=== PATIENT | female | born 1960 | race Caucasian/White ===

== ENCOUNTER → 2016-04-21 | Outpatient (CLI) | payer BC, OTHER ==
--- NOTE | 2016-04-21 11:25 | MM ---
Reason for exam: history of breast cancer, mastectomy. Last mammogram was performed 1 year ago. History: Patient has history of breast cancer at age 47. Family history of breast cancer in paternal cousin and premenopausal breast cancer in paternal cousin. Excisional biopsy of the right breast, September 17, 2008. Benign left mammotome panel of the left breast, September 01, 2008. Mastectomy of the right breast, September 2008. Saline implant in the right breast, 2008. Malignant excisional biopsy of the right breast, February 25, 2008. Chemotherapy. Taking tamoxifen for 5 years 4 months beginning at age 47. Took unspecified hormones for 10 months. Physical Findings: Nurse did not find any significant physical abnormalities on exam. MG 3D Diag Mammo W/Cad LT CC and MLO view(s) were taken of the left breast. Prior study comparison: April 20, 2015, left breast MG 3d diag mammo w/cad LT. March 11, 2014, left breast MG diagnostic mammo LT w CAD. March 07, 2013, left diagnostic mammogram w/CAD. There are scattered fibroglandular densities. Previous mammotome biopsy in the left breast. There is chronic nodularity in the left breast. No significant new findings when compared with previous films. These results were verbally communicated with the patient and result sheet given to the patient on 04/21/16. ASSESSMENT: Negative, BI-RAD 1 RECOMMENDATION: Follow-up diagnostic mammogram of the left breast in 1 year.
== END | disposition home or self-care (01) ==
LOC: RADMAMWWP 10:45
PROVIDERS: ATTEND Internal Medicine Hematology & Oncology
DX: Z08 Encounter for follow-up examination after completed treatment for malignant neoplasm (principal); Z85.3 Personal history of malignant neoplasm of breast
CPT/HCPCS: G0206; G0279

== ENCOUNTER → 2017-06-26 | Outpatient (CLI) | payer BC, OTHER ==
--- NOTE | 2017-06-26 10:23 | MM ---
Reason for exam: additional evaluation requested from prior study. Last mammogram was performed 1 year and 2 months ago. History: Patient is postmenopausal and has history of breast cancer at age 47. Family history of breast cancer in paternal cousin and premenopausal breast cancer in paternal cousin. Excisional biopsy of the right breast, September 17, 2008. Benign left mammotome panel of the left breast, September 01, 2008. Mastectomy of the right breast, September 2008. Saline implant in the right breast, 2008. Malignant excisional biopsy of the right breast, February 25, 2008. Chemotherapy. Taking tamoxifen for 5 years 4 months beginning at age 47. Took unspecified hormones for 10 months. Physical Findings: Nurse did not find any significant physical abnormalities on exam. MG 3D Diag Mammo W/Cad LT CC and MLO view(s) were taken of the left breast. Prior study comparison: April 21, 2016, left breast MG 3d diag mammo w/cad LT. April 20, 2015, left breast MG 3d diag mammo w/cad LT. There are scattered fibroglandular densities. Previous mammotome biopsy in the left breast. There is chronic nodularity in the left breast at clip. There is no discrete abnormality. These results were verbally communicated with the patient and result sheet given to the patient on 06/26/17. ASSESSMENT: Benign, BI-RAD 2 RECOMMENDATION: Follow-up diagnostic mammogram of the left breast in 1 year.
== END | disposition home or self-care (01) ==
LOC: RADMAMWWP 09:20
PROVIDERS: ATTEND Obstetrics & Gynecology
DX: Z08 Encounter for follow-up examination after completed treatment for malignant neoplasm (principal); Z85.3 Personal history of malignant neoplasm of breast
CPT/HCPCS: 77065; G0279

== ENCOUNTER 2017-08-04 09:37 | Day surgery (SDC) | payer BC, OTHER ==
[2017-08-02 10:32] VITALS: BMI 31.1
[~2017-08-04 09:37] MED LIST: LACTATED RINGERS 1,000 ML IV SCH; LIDOCAINE 1% 20 ML VIAL (10MG/ML) FOR IV START INTRADERMA PRN; MIDAZOLAM 2 MG/2 ML VIAL IV PRN
[2017-08-04 10:48] VITALS: RESP 16; TEMP 99
[2017-08-04] MEDS ORDERED: PROPOFOL 10 MG/ML 20 ML VIAL IV ONE (11:08)
--- NOTE | 2017-08-04 11:40 | P.PCN ---
Date of Procedure: 08/04/17 Procedure(s) Performed: BRIEF HISTORY: Patient is a 57-year-old pleasant white female, scheduled for an elective colonoscopy as a part of screening for colon neoplasia. She does have family history of colon cancer diagnosed in her father in his 70s. PROCEDURE PERFORMED: Colonoscopy with snare polyp. PREOPERATIVE DIAGNOSIS: Screening for colon cancer/family history of colon cancer. IV sedation per Anesthesia. PROCEDURE: After informed consent was obtained, the patient, was brought into the endoscopy unit. IV sedation was administered by Anesthesia under continuous monitoring. Digital rectal examination was normal. Initially the Olympus CF- 160 flexible video colonoscope was then inserted in the rectum, gradually advanced into the cecum without any difficulty. Careful examination was performed as the scope was gradually being withdrawn. Ileocecal valve and the appendiceal orifice were visualized and appeared normal. Prep was excellent. Mucosa of the cecum, ascending colon, transverse colon, descending colon, sigmoid colon, and rectum appeared normal. Retroflexion was performed in the rectum and no lesions were seen. The patient tolerated the procedure well. IMPRESSION: 5 mm sessile transverse colon polyp status post snare polypectomy Rest of the colon appeared normal. RECOMMENDATIONS: Findings of this examination were discussed with the patient as well as her family. She was advised to have a repeat severance colonoscopy in 5 is removed because of colon polyps and family history of colon cancer].
[2017-08-04 12:01] VITALS: BP 139/92; PULSE 61
== END 2017-08-04 12:18 | disposition home or self-care (01) ==
LOC: ORWHC2ENDO 09:37
PROVIDERS: ATTEND Internal Medicine Gastroenterology
DX: Z12.11 Encounter for screening for malignant neoplasm of colon (principal); K63.5 Polyp of colon; Z80.0 Family history of malignant neoplasm of digestive organs; I10 Essential (primary) hypertension; E07.9 Disorder of thyroid, unspecified; F17.200 Nicotine dependence, unspecified, uncomplicated; Z79.82 Long term (current) use of aspirin; Z79.890 Hormone replacement therapy; Z79.899 Other long term (current) drug therapy; Z88.0 Allergy status to penicillin
CPT/HCPCS: 88305; 45385; J2704

== ENCOUNTER → 2018-07-13 | Outpatient (CLI) | payer OTHER ==
--- NOTE | 2018-07-13 13:41 | MM ---
Reason for exam: additional evaluation requested from prior study. Last mammogram was performed 1 year and 1 month ago. History: Patient is postmenopausal and has history of breast cancer at age 47. Family history of breast cancer in paternal cousin and premenopausal breast cancer in paternal cousin. Excisional biopsy of the right breast, September 17, 2008. Benign left mammotome panel of the left breast, September 01, 2008. Mastectomy of the right breast, September 2008. Saline implant in the right breast, 2008. Malignant excisional biopsy of the right breast, February 25, 2008. Chemotherapy. Taking tamoxifen for 5 years 4 months beginning at age 47. Took unspecified hormones for 10 months. Physical Findings: Nurse did not find any significant physical abnormalities on exam. MG 3D Diag Mammo W/Cad LT CC, MLO, and LM view(s) were taken of the left breast. Prior study comparison: June 26, 2017, left breast MG 3d diag mammo w/cad LT. April 21, 2016, left breast MG 3d diag mammo w/cad LT. The breast tissue is heterogeneously dense. This may lower the sensitivity of mammography. There is chronic nodularity in the left breast. Stable post operative changes left breast. No significant new findings when compared with previous films. These results were verbally communicated with the patient and result sheet given to the patient on 07/13/18. ASSESSMENT: Benign, BI-RAD 2 RECOMMENDATION: Follow-up diagnostic mammogram of the left breast in 1 year.
== END | disposition home or self-care (01) ==
LOC: RADMAMWWP 12:46
PROVIDERS: ATTEND Internal Medicine Hematology & Oncology
DX: Z08 Encounter for follow-up examination after completed treatment for malignant neoplasm (principal); Z85.3 Personal history of malignant neoplasm of breast
CPT/HCPCS: 77061; 77065

== ENCOUNTER → 2019-10-31 | Outpatient (CLI) | payer OTHER | END | disposition home or self-care (01) | LOC: LABWHC1 09:00 | PROVIDERS: ATTEND Nurse Practitioner Family | DX: E87.5 Hyperkalemia (principal) | CPT/HCPCS: 36415; 84132 ==

== ENCOUNTER → 2020-02-04 | Outpatient (CLI) | payer OTHER ==
--- NOTE | 2020-02-05 11:11 | MM ---
Reason for exam: screening (asymptomatic). Last mammogram was performed 1 year and 7 months ago. History: Patient is postmenopausal and has history of breast cancer at age 47. Family history of breast cancer in paternal cousin and premenopausal breast cancer in paternal cousin. Excisional biopsy of the right breast, September 17, 2008. Benign left mammotome panel of the left breast, September 01, 2008. Mastectomy of the right breast, September 2008. Saline implant in the right breast, 2008. Malignant excisional biopsy of the right breast, February 25, 2008. Chemotherapy. Taking tamoxifen for 5 years 4 months beginning at age 47. Took unspecified hormones for 10 months. Physical Findings: A clinical breast exam by your physician is recommended on an annual basis and results should be correlated with mammographic findings. MG 3D Scr Judy Unilateral W/Cad CC and MLO view(s) were taken of the left breast. Prior study comparison: July 13, 2018, left breast MG 3d diag mammo w/cad LT. June 26, 2017, left breast MG 3d diag mammo w/cad LT. There are scattered fibroglandular densities. Benign appearing calcifications in the left breast. Previous mammotome biopsy in the left breast. There is chronic nodularity in the left breast, stable. No significant changes when compared with prior studies. ASSESSMENT: Benign, BI-RAD 2 RECOMMENDATION: Routine screening mammogram of the left breast in 1 year.
== END | disposition home or self-care (01) ==
LOC: RADMAMWWP 09:03
PROVIDERS: ATTEND Family Medicine
DX: Z12.31 Encounter for screening mammogram for malignant neoplasm of breast (principal)
CPT/HCPCS: 77067

== ENCOUNTER → 2021-05-24 | Outpatient (CLI) | payer BC ==
--- NOTE | 2021-05-26 11:19 | MM ---
Reason for exam: screening (asymptomatic). Last mammogram was performed 1 year and 4 months ago. History: Patient is postmenopausal and has history of breast cancer at age 47. Family history of breast cancer in paternal cousin and premenopausal breast cancer in paternal cousin. Excisional biopsy of the right breast, September 17, 2008. Benign left mammotome panel of the left breast, September 01, 2008. Mastectomy of the right breast, September 2008. Saline implant in the right breast, 2008. Malignant excisional biopsy of the right breast, February 25, 2008. Chemotherapy. Taking tamoxifen for 5 years 4 months beginning at age 47. Took unspecified hormones for 10 months. Physical Findings: A clinical breast exam by your physician is recommended on an annual basis and results should be correlated with mammographic findings. MG 3D Scr Judy Unilateral W/Cad Bilateral CC and MLO view(s) were taken. Prior study comparison: February 04, 2020, bilateral MG 3d scr judy unilateral w/cad. July 13, 2018, left breast MG 3d diag mammo w/cad LT. There are scattered fibroglandular densities. Previous mammotome biopsy in the left breast. There is chronic nodularity in the left breast. No significant changes when compared with prior studies. ASSESSMENT: Benign, BI-RAD 2 RECOMMENDATION: Routine screening mammogram of the left breast in 1 year.
== END | disposition home or self-care (01) ==
LOC: RADMAMWWP 07:37
PROVIDERS: ATTEND Obstetrics & Gynecology
DX: Z12.31 Encounter for screening mammogram for malignant neoplasm of breast (principal); Z80.3 Family history of malignant neoplasm of breast; Z85.3 Personal history of malignant neoplasm of breast; Z78.0 Asymptomatic menopausal state
CPT/HCPCS: 77067

== ENCOUNTER → 2022-07-19 | Outpatient (CLI) | payer BC ==
--- NOTE | 2022-07-19 14:29 | BD ---
EXAMINATION TYPE: Axial Bone Density DATE OF EXAM: 07/19/2022 CLINICAL HISTORY: 62 years old Female. ICD-10 CODE: Z78.0 ASYMPTOMATIC MENOPAUSAL STATE Height: 61.5 Weight: 161 FRAX RISK QUESTIONS: Current Tobacco Use: yes RISK FACTORS HISTORY OF: Postmenopausal woman: yes, hx of chemo 2009 at 47 yrs old, menses stopped Hyperparathyroidism: no Adrenal Insufficiency: no MEDICATIONS: Thyroid Medications: yes, since age 47, synthroid product. Additional Medications: bp meds, hx of chemo, cancer at age 47, tomoxifin for 10 yrs, Additional History: hx of rt breast cancer at age 47, mastectomy with reconstruction right breast, th yr, hypertension EXAM MEASUREMENTS: Bone mineral densitometry was performed using the [employer]. Bone mineral density as measured about the Lumbar spine is: ----- L1-L4(G/cm2): 1.057 T Score Values are as follows: ----- L1: -1.3 ----- L2: -1.1 ----- L3: -1.3 ----- L4: -0.7 ----- L1-L4: -1.0 Z Score Values are as follows: ----- L1: -0.3 ----- L2: -0.1 ----- L3: -0.3 ----- L4: 0.3 ----- L1-L4: 0.0 Bone mineral density has: Decreased -2.1% since 04.20.2015 Bone mineral density about the R hip (g/cm2): 0.932 Bone mineral density about the L hip (g/cm2): 0.919 T Score values are as follows: -----R Neck: -1.1 -----L Neck: -1.2 -----R Total: -0.6 -----L Total: -0.7 Z Score values are as follows: -----R Neck: 0.0 -----L Neck: -0.1 -----R Total: 0.1 -----L Total: 0.3 Bone mineral density has: Decreased -1.3% since: 04.20.2015 FRAX%s: The graph provided illustrates a 7.3% chance for a major osteoporotic fx and a 0.8% chance fo r the hips probability for fx in 10 years time. IMPRESSION: Osteopenia (T Score between -2.5 and -1) is now present. There is slightly increased risk of fracture and the patient may be considered for treatment. Re-Screen 2-5 years. NOTE: T-SCORE=SD OF THE YOUNG ADULT MEAN.
--- NOTE | 2022-07-20 09:59 | MM ---
Reason for Exam: Screening (asymptomatic). Last mammogram was performed 1 year(s) and 2 month(s) ago. Patient History: Menarche at age 12. First Full-Term at age 24. Postmenopausal. Breast cancer, right, age 47. Tamoxifen, starting at age 47 for 5 years, 4 months. Unspecified Hormone for 10 months. 09/2008, Mastectomy on the Right side. 02/25/2008, Malignant Excisional Biopsy on the right side. 09/01/2008, Benign Core Biopsy on the left side. Chemotherapy. 2008, Implant on the right side. Paternal cousin had breast cancer. Paternal cousin had breast cancer. Prior Study Comparison: 07/13/2018 Left Diagnostic Mammogram, [facility]. 02/04/2020 Bilateral Screening Mammogram, [facility]. 05/24/2021 Bilateral Screening Mammogram, [facility]. Tissue Density: Left: There are scattered fibroglandular densities. Findings: There is no suspicious group of microcalcifications or new suspicious mass. Previous mammotome biopsy in the left breast. Chronic nodularity within the left breast. Overall Assessment: Benign, BI-RAD 2 Management: Screening Mammogram of the left breast in 1 year. A clinical breast exam by your physician is recommended on an annual basis and results should be correlated with mammographic findings. Electronically signed and approved by: Alan Mendoza D.O.
== END | disposition home or self-care (01) ==
LOC: RADMAMWWP 10:55
PROVIDERS: ATTEND Obstetrics & Gynecology
DX: Z12.31 Encounter for screening mammogram for malignant neoplasm of breast (principal); Z78.0 Asymptomatic menopausal state; M85.89 Other specified disorders of bone density and structure, multiple sites
CPT/HCPCS: 77067; 77080

== ENCOUNTER → 2023-09-07 | Outpatient (CLI) | payer BC ==
--- NOTE | 2023-09-07 21:10 | MM ---
Reason for Exam: Screening (asymptomatic). Last mammogram was performed 1 year(s) and 2 month(s) ago. Patient History: Menarche at age 12. First Full-Term at age 24. Postmenopausal. Breast cancer, right, age 47. Tamoxifen, starting at age 47 for 5 years, 4 months. Unspecified Hormone for 10 months. 09/2008, Mastectomy on the Right side. 09/17/2008, Excisional Biopsy on the Right side. 02/25/2008, Malignant Excisional Biopsy on the right side. 09/01/2008, Benign Core Biopsy on the left side. Chemotherapy. 2008, Implant on the right side. Paternal cousin had breast cancer. Paternal cousin had breast cancer. Prior Study Comparison: 02/04/2020 Bilateral Screening Mammogram, [facility]. 05/24/2021 Bilateral Screening Mammogram, [facility]. 07/19/2022 Left MG 3D scr jos unilateral w/cad., [facility]. Tissue Density: Left: There are scattered areas of fibroglandular density. Findings: Chronic nodularity central left breast with microclip related to prior biopsy. There is no suspicious group of microcalcifications or new suspicious mass in either breast. Overall Assessment: Benign, BI-RAD 2 Management: Screening Mammogram of the left breast in 1 year. Patient should continue monthly self-breast exams. A clinical breast exam by your physician is recommended on an annual basis. This exam should not preclude additional follow-up of suspicious palpable abnormalities. Electronically signed and approved by: Antonio Churchill M.D. Radiologist
== END | disposition home or self-care (01) ==
LOC: RADMAMWWP 08:34
PROVIDERS: ATTEND Family Medicine
DX: Z12.31 Encounter for screening mammogram for malignant neoplasm of breast (principal); Z78.0 Asymptomatic menopausal state; Z80.3 Family history of malignant neoplasm of breast
CPT/HCPCS: 77067

== ENCOUNTER → 2024-09-19 | Outpatient (CLI) | payer BC ==
--- NOTE | 2024-09-19 14:22 | MM ---
Reason for Exam: Screening (asymptomatic). Last screening mammogram was performed 12 month(s) ago. Patient History: Menarche at age 12. First Full-Term at age 24. Postmenopausal. Breast cancer, right, age 47. Tamoxifen, starting at age 47 for 5 years, 4 months. Unspecified Hormone for 10 months. 09/2008, Mastectomy on the Right side. 09/17/2008, Excisional Biopsy on the Right side. 02/25/2008, Malignant Excisional Biopsy on the right side. 09/01/2008, Benign Core Biopsy on the left side. Chemotherapy. 2008, Implant on the right side. Paternal cousin had breast cancer. Paternal cousin had breast cancer. Prior Study Comparison: 05/24/2021 Bilateral Screening Mammogram, [facility]. 07/19/2022 Left MG 3D scr jos unilateral w/cad., [facility]. 09/07/2023 Left MG 3D scr jos unilateral w/cad., [facility]. Tissue Density: Left: There are scattered areas of fibroglandular density. Findings: Analyzed By CAD. Microclip left breast from prior biopsy. Chronic nodularity on the left with gradually increasing dystrophic calcifications suggesting a benign etiology such as a degenerating fibroid. Small area of nodular asymmetry laterally appears to have increased from older priors. This may represent superimposition shadow but further evaluation is recommended. Overall Assessment: Incomplete: need additional imaging evaluation, BI-RAD 0 Management: Special View Mammogram of the left breast. [facility] will attempt to contact patient to return for supplemental views and ultrasound if indicated. [facility], , 09/19/2024 2:19 PM. Electronically signed and approved by: Antonio Churchill M.D. Radiologist
== END | disposition home or self-care (01) ==
LOC: RADMAMWWP 08:47
PROVIDERS: ATTEND Family Medicine
DX: Z12.31 Encounter for screening mammogram for malignant neoplasm of breast (principal); R92.322 Mammographic fibroglandular density, left breast; Z78.0 Asymptomatic menopausal state; Z85.3 Personal history of malignant neoplasm of breast; Z80.3 Family history of malignant neoplasm of breast; Z90.11 Acquired absence of right breast and nipple
CPT/HCPCS: 77067

== ENCOUNTER → 2024-09-25 | Outpatient (CLI) | payer BC ==
--- NOTE | 2024-09-25 13:44 | MM ---
Reason for Exam: Follow-up at short interval from prior study. Last screening mammogram was performed less than 1 month ago. Patient History: Menarche at age 12. First Full-Term at age 24. Postmenopausal. Breast cancer, right, age 47. Tamoxifen, starting at age 47 for 5 years, 4 months. Unspecified Hormone for 10 months. 09/2008, Mastectomy on the Right side. 09/17/2008, Excisional Biopsy on the Right side. 02/25/2008, Malignant Excisional Biopsy on the right side. 09/01/2008, Benign Core Biopsy on the left side. Chemotherapy. 2008, Implant on the right side. Paternal cousin had breast cancer. Paternal cousin had breast cancer. Prior Study Comparison: 07/19/2022 Left MG 3D scr jos unilateral w/cad., [facility]. 09/07/2023 Left MG 3D scr jos unilateral w/cad., [facility]. 09/19/2024 Left MG screen jos unilateral w/cad, [facility]. Tissue Density: Left: There are scattered areas of fibroglandular density. Findings: Analyzed By CAD. No new suspicious masses, calcifications or distortions. Resolution of prior asymmetry left breast posterior depth posterior nipple line. Left breast clip present. Overall Assessment: Benign, BI-RAD 2 Management: Screening Mammogram of both breasts in 1 year. Results were given to the patient verbally at the time of exam. Patient should continue monthly self-breast exams. A clinical breast exam by your physician is recommended on an annual basis. This exam should not preclude additional follow-up of suspicious palpable abnormalities. Note on Vidhya scores and lifetime risk: 1. A Vidhya score greater than 3% is considered moderate risk. If this is the case, consider specialist referral to assess eligibility for a risk reducing agent. 2. If overall lifetime risk for the development of breast cancer is 20% or higher, the patient may qualify for future screening with alternating mammogram and breast MRI. [facility], , 09/25/2024 1:41 PM. Electronically signed and approved by: Rich Gonzalez DO
== END | disposition home or self-care (01) ==
LOC: RADMAMWWP 13:05
PROVIDERS: ATTEND Family Medicine
DX: R92.8 Other abnormal and inconclusive findings on diagnostic imaging of breast (principal); R92.322 Mammographic fibroglandular density, left breast; Z80.3 Family history of malignant neoplasm of breast; Z85.3 Personal history of malignant neoplasm of breast; Z78.0 Asymptomatic menopausal state
CPT/HCPCS: 77061; 77065

== ENCOUNTER 2024-10-30 10:37 | Day surgery (SDC) | payer BC ==
[2024-10-24 14:19] VITALS: BMI 28.0
[~2024-10-30 10:37] MED LIST changes: -LACTATED RINGERS 1,000 ML IV SCH; +LIDOCAINE 1% (10MG/ML) FOR IV START INTRADERMA PRN; -LIDOCAINE 1% 20 ML VIAL (10MG/ML) FOR IV START INTRADERMA PRN; -MIDAZOLAM 2 MG/2 ML VIAL IV PRN
[2024-10-30 12:03] VITALS: TEMP 98.2
[2024-10-30] MEDS: LACTATED RINGERS 1,000 ML IV SCH (12:04)
[2024-10-30] MEDS: IV FLUID CONTINUATION 1,000 ML IV ONE (12:05)
[2024-10-30] MEDS ORDERED: PROPOFOL 10 MG/ML 20 ML VIAL IV ONE (12:44)
--- NOTE | 2024-10-30 13:07 | P.PCN ---
Date of Procedure: 10/30/24 Procedure(s) Performed: BRIEF HISTORY: Patient is a 64-year-old pleasant white female scheduled for an elective colonoscopy as a part of screening for colon cancer and family history of colon cancer. her father was diagnosed with colon cancer at age 58. PROCEDURE PERFORMED: Colonoscopy with snare polypectomy. PREOPERATIVE DIAGNOSIS: Screening for colon cancer and family history of colon cancer. IV sedation per Anesthesia. PROCEDURE: After informed consent was obtained, the patient, was brought into the endoscopy unit. IV sedation was administered by Anesthesia under continuous monitoring. Digital rectal examination was normal. Initially the Olympus CF-160 flexible video colonoscope was then inserted in the rectum, gradually advanced into the cecum without any difficulty. Careful examination was performed as the scope was gradually being withdrawn. Ileocecal valve and the appendiceal orifice were visualized and appeared normal. Prep was excellent. Mucosa of the cecum, appeared normal. In the ascending colon there was a 7 mm polyp that was removed by cold snare polypectomy. Rest of the ascending colon, transverse colon, descending colon, sigmoid colon, and rectum appeared normal. Scattered sigmoid diverticulosis. Retroflexion was performed in the rectum and no lesions were seen. The patient tolerated the procedure well. IMPRESSION: 7 mm ascending colon polyp status post cold snare polypectomy Scattered sigmoid diverticulosis RECOMMENDATIONS: Findings of this examination were discussed with the patient as well as her family. She was advised to follow-up with the biopsy results. Recommend repeat colonoscopy in 5 years because of the family history of colon cancer.
[2024-10-30 13:28] VITALS: BP 127/85; PULSE 65; RESP 16
== END 2024-10-30 13:35 | disposition home or self-care (01) ==
LOC: ORWHC2ENDO 10:37
PROVIDERS: ATTEND Internal Medicine Gastroenterology
DX: Z12.11 Encounter for screening for malignant neoplasm of colon (principal); D12.2 Benign neoplasm of ascending colon; K57.30 Diverticulosis of large intestine without perforation or abscess without bleeding; I10 Essential (primary) hypertension; E07.9 Disorder of thyroid, unspecified; F17.200 Nicotine dependence, unspecified, uncomplicated; Z79.82 Long term (current) use of aspirin; Z79.890 Hormone replacement therapy; Z79.899 Other long term (current) drug therapy; Z85.3 Personal history of malignant neoplasm of breast; Z80.0 Family history of malignant neoplasm of digestive organs; Z88.0 Allergy status to penicillin
CPT/HCPCS: 88305; 45385; J2704